=== PATIENT | female | born 1990 | race Caucasian/White ===

== ENCOUNTER 2017-10-22 05:38 | Inpatient (IN) | payer OTHER, MEDICAID ==
--- NOTE | 2017-10-21 15:33 | HP ---
DATE OF ADMISSION: 10/22/2017 ADMISSION DIAGNOSES: Term , history of previous section, for repeat section. HISTORY OF PRESENT ILLNESS: The patient is a 26-year-old 2, para 1-0-0-1, white female who is admitted for elective repeat section. She has an BENEDICT of 10/29/2017 as is determined by a certain last menstrual period. She is admitted for elective repeat section. The procedure, risks, benefits, and alternatives of care including attempt at all discussed with the patient. She appears to understand and wishes to proceed. Consent is signed. OBSTETRICAL/GYNECOLOGICAL HISTORY: 2, para 1-0-0-1. The patient had a certain last menstrual period, and BENEDICT is based on that. BENEDICT is 10/29/2017, placing her at 39-0/7 weeks' gestational age upon admission for elective repeat section. The patient has had a relatively unremarkable course. Her cycles usually come q. 28 days. Menarche at age 13. Positive hCG on 03/20/2017. Last menstrual period was normal. Not using any control at the time of conception. Her group B strep screen is negative. She has a history of drug use prior to this . She plans on . She has somewhat of an anxiety disorder. COURSE: The patient was initially seen early in the at 8 weeks 1 day. Her care was regular and constant. She had a weight gain from 153 pounds up to 182 pounds for a 29-pound weight gain. Fundal height growth was appropriate, and vital signs were stable throughout the course. Laboratory testing in showed blood to be O positive with a negative antibody screen. Platelets were 408,000 at first visit. She is rubella immune. RPR is nonreactive. Varicella shows immunity. Her urine culture was relatively unremarkable, and probable contaminants were noted. HIV and hepatitis B surface antigen assays were both negative. Chlamydia and gonorrhea were both negative. TSH on 03/21/2017 was 1.870 milliunits/L. Her group B strep screen was negative. Her second trimester labs showed hemoglobin of 11.8 g/dL and platelets of 311,000. Her 1-hour GTT was normal at 126. PAST MEDICAL HISTORY: Penicillin allergy. PAST SURGICAL HISTORY: 1. T and A at age 17. 2. Multiple jaw surgeries at age 17. 3. Primary section that was done on 07/08/2010 with resultant 8 pounds 0 ounce female . The reason for was failure to progress. ALLERGIES: Penicillin which causes hives. The patient reports no problems with cephalosporins. CURRENT MEDICATIONS: 1. Inhaler consisting of Breo Ellipta 100/25 mcg per inhalation use p.r.n. per day. 2. ProAir HFA inhaler 2 puffs every 4 hours p.r.n. 3. Cyclobenzaprine HCL 10 mg per day up to 3 times a day. 4. Escitalopram oxalate 20 mg oral tablets daily. 5. Flintstones plus iron oral tablet chewables. FAMILY HISTORY: Positive for mother's side with cancer. No anesthesia, bleeding, or blood clotting problems noted in the family. SOCIAL HISTORY: The patient is single and lives in [place]. She does not use any significant amounts of alcohol or drugs, but has smoked during the course of 3 to 4 cigarettes per day. REVIEW OF SYSTEMS: GENERAL: The patient reports good activity and no concerns. SKIN: Negative. CARDIOVASCULAR: No chest pain or exercise intolerance. RESPIRATORY: No shortness of breath or infectious symptoms. BREASTS: Changes associated with . The patient plans to breast feed. GASTROINTESTINAL: Negative. GENITOURINARY: Changes associated with with increased fundal height. MUSCULOSKELETAL: Negative other than some mild edema on occasion. NEUROLOGICAL: Negative. PHYSICAL EXAMINATION: GENERAL: The patient is a well-developed, well-nourished, pleasant female of stated age, in no acute distress. She appears to be alert, oriented x3, and a reasonable historian. VITAL SIGNS: Blood pressure was 124/62 on last evaluation on 10/16/2017 in the clinic. Weight was 182 with pregravid weight of 153. heart rate was 130. At the time of 1st visit, her height was 5 feet 2 inches, and her body mass index was 28.2. SKIN: Warm and dry without lesions. HEENT: Within normal limits. NECK: Within normal limits. BACK: Within normal limits. LUNGS: Clear with good breath sounds in all lung irizarry. CARDIOVASCULAR: Regular rate and rhythm without murmurs. BREASTS: Not done, having been done at first visit and found to be normal. ABDOMEN: Protuberant with with fundal height of 38.5 cm and baby in vertex presentation by Waqas maneuvers. EXTREMITIES: Grossly, within normal limits. NEUROLOGICAL: Grossly, within normal limits. ASSESSMENT: 1. A 39-0/7 weeks' intrauterine upon admission for elective repeat section. The procedure, risks, benefits, and alternatives of care including attempt at all discussed with the patient. She appears to understand and wishes to proceed. Consent is signed. 2. Risk factors for surgery include history of previous section and history of smoking in . PLAN: 1. Repeat lower uterine segment transverse section through Pfannenstiel skin incision under spinal block. Procedure, risks, and benefits were discussed with the patient. Consent is signed. 2. DVT prophylaxis with SCDs. 3. Infection prophylaxis with Ancef 2 g IV preop. 4. Routine preoperative laboratory testing consisting of CBC, urinalysis, type and screen. 5. Antibiotic prophylaxis with Ancef-we will give test dose prior to full dose. MMELISABETH /[id number]
[~2017-10-22 05:38] MED LIST: Citric Acid/Sodium Citrate Solution 30 ML Cup PO ONE; Lactated Ringers 1,000 ML IV SCH; Metoclopramide 10 MG/2 ML SDV IVPUSH ONE; Sodium Chloride 0.9% 10 ML Syringe FLUSH PRN
[2017-10-22] MEDS ORDERED: Morphine PF 10 MG/10 ML SDV ONE (07:00)
[2017-10-22] MEDS ORDERED: Oxytocin 10 Units/1 ML SDV ONE (07:01)
[2017-10-22] MEDS ORDERED: Bupivacaine 0.75%/D5W 2 ML Amp ONE (07:01)
[2017-10-22] MEDS ORDERED: Ondansetron 4 MG/2 ML SDV ONE (07:05)
--- NOTE | 2017-10-22 07:24 | PCM.PREANE ---
Preanesthetic Assessment - Procedure Proposed Procedure: Section - Anesthesia/Transfusion/Family Hx Anesthesia History: Prior Anesthesia Without Reaction Family History of Anesthesia Reaction: No Transfusion History: No Prior Transfusion(s) Intubation History: Unknown - Review of Systems General: No Symptoms Pulmonary: No Symptoms Cardiovascular: No Symptoms Gastrointestinal: No Symptoms Neurological: No Symptoms Other: Reports: None - Physical Assessment NPO Status Date: 10/21/17 NPO Status Time: 23:30 Pulse: 79 O2 Sat by Pulse Oximetry: 97 Respiratory Rate: 16 Blood Pressure: 114/68 Temperature: 36.6 C Vital Signs: Last Vital Signs Temp 36.6 C 10/22/17 05:50 Pulse 79 10/22/17 05:50 Resp 16 10/22/17 05:50 BP 114/68 10/22/17 05:50 Pulse Ox 97 10/22/17 05:50 Height: 1.57 m Weight: 83.189 kg ASA Class: 2 Mental Status: Alert & Oriented x3 Airway Class: Mallampati = 1 Dentition: Reports: Normal Dentition Thyro-Mental Finger Breadths: 3 Mouth Opening Finger Breadths: 5 Lungs: Clear to Auscultation, Normal Respiratory Effort Cardiovascular: Regular Rate, Regular Rhythm - Lab Values: Laboratory Last Values WBC 12.12 K/mm3 (3.98-10.04) H 10/21/17 08:22 RBC 3.94 M/mm3 (3.98-5.22) L 10/21/17 08:22 Hgb 12.4 gm/L (11.2-15.7) 10/21/17 08:22 Hct 36.2 % (34.1-44.9) 10/21/17 08:22 MCV 91.9 fl (79.4-94.8) 10/21/17 08:22 MCH 31.5 pg (25.6-32.2) 10/21/17 08:22 MCHC 34.3 g/dl (32.2-35.5) 10/21/17 08:22 RDW Std Deviation 43.0 fL (36.4-46.3) 10/21/17 08:22 Plt Count 317 K/mm3 (182-369) 10/21/17 08:22 MPV 9.1 fl (9.4-12.3) L 10/21/17 08:22 Neut % (Auto) 60.8 % (34.0-71.1) 10/21/17 08:22 Lymph % (Auto) 24.2 % (19.3-51.7) 10/21/17 08:22 Warren % (Auto) 8.8 % (4.7-12.5) 10/21/17 08:22 Eos % (Auto) 2.3 (0.7-5.8) 10/21/17 08:22 Baso % (Auto) 0.3 % (0.1-1.2) 10/21/17 08:22 Neut # (Auto) 7.36 K/mm3 (1.56-6.13) H 10/21/17 08:22 Lymph # (Auto) 2.93 K/mm3 (1.18-3.74) 10/21/17 08:22 Warren # (Auto) 1.07 K/mm3 (0.24-0.36) H 10/21/17 08:22 Eos # (Auto) 0.28 K/mm3 (0.04-0.36) 10/21/17 08:22 Baso # (Auto) 0.04 K/mm3 (0.01-0.08) 10/21/17 08:22 Manual Slide Review Abnormal smear 10/21/17 08:22 Urine Color Yellow (Yellow) 10/22/17 06:00 Urine Appearance Clear (Clear) 10/22/17 06:00 Urine pH 6.5 (5.0-8.0) 10/22/17 06:00 Ur Specific Dupont 1.015 (1.005-1.030) 10/22/17 06:00 Urine Protein Negative (Negative) 10/22/17 06:00 Urine Glucose (UA) Negative (Negative) 10/22/17 06:00 Urine Ketones Negative (Negative) 10/22/17 06:00 Urine Occult Blood Negative (Negative) 10/22/17 06:00 Urine Nitrite Negative (Negative) 10/22/17 06:00 Urine Bilirubin Negative (Negative) 10/22/17 06:00 Urine Urobilinogen 0.2 (0.2-1.0) 10/22/17 06:00 Ur Leukocyte Esterase Negative (Negative) 10/22/17 06:00 Urine RBC Not seen /hpf (0-5) 10/22/17 06:00 Urine WBC 0-5 /hpf (0-5) 10/22/17 06:00 Ur Epithelial Cells 5-10 /hpf (0-5) H 10/22/17 06:00 Urine Bacteria Few /hpf (FEW) 10/22/17 06:00 Urine Mucus Few /hpf (FEW) 10/22/17 06:00 Urine Opiates Screen Negative (NEGATIVE) 10/22/17 06:00 Ur Buprenorphine Scrn Negative (NEGATIVE) 10/22/17 06:00 Ur Oxycodone Screen Negative (NEGATIVE) 10/22/17 06:00 Urine Methadone Screen Negative (NEGATIVE) 10/22/17 06:00 Ur Propoxyphene Screen Negative (NEGATIVE) 10/22/17 06:00 Ur Barbiturates Screen Negative (NEGATIVE) 10/22/17 06:00 Ur Tricyclics Screen Negative (NEGATIVE) 10/22/17 06:00 Ur Phencyclidine Scrn Negative (NEGATIVE) 10/22/17 06:00 Ur Amphetamine Screen Negative (NEGATIVE) 10/22/17 06:00 U Methamphetamines Scrn Negative (NEGATIVE) 10/22/17 06:00 U Benzodiazepines Scrn Negative (NEGATIVE) 10/22/17 06:00 U Cocaine Metab Screen Negative (NEGATIVE) 10/22/17 06:00 U Marijuana (THC) Screen Negative (NEGATIVE) 10/22/17 06:00 Blood Type O POSITIVE 10/21/17 08:22 Gel Antibody Screen Negative 10/21/17 08:22 - Allergies Allergies/Adverse Reactions: Allergies Allergy/AdvReac Type Severity Reaction Status Date / Time Penicillins Allergy Hives Verified 10/21/17 23:14 - Blood Blood Available: No - Anesthesia Plan Pre-Op Medication Ordered: Other (standard OB preop meds ) - Acknowledgements Anesthesia Type Planned: Spinal Pt an Appropriate Candidate for the Planned Anesthesia: Yes Alternatives and Risks of Anesthesia Discussed w Pt/Guardian: Yes Pt/Guardian Understands and Agrees with Anesthesia Plan: Yes PreAnesthesia Questionnaire Respiratory History: Reports: Bronchitis, Recurrent Genitourinary History: Reports: UTI, Recurrent 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: Psychiatric History: Reports: Anxiety - Past Surgical History HEENT Surgical History: Reports: Adenoidectomy, Tonsillectomy GI Surgical History: Reports: Cholecystectomy Female Surgical History: Reports: Section - SUBSTANCE USE Smoking Status *Q: Current Some Day Smoker Tobacco Use Within Last Twelve Months: Cigarettes Recreational Drug Use History: Yes Recreational Drug Type: Reports: Methamphetamine - HOME MEDS Home Medications: Home Meds Albuterol Sulfate [Proair Hfa] 8.5 gm IH Q4HR PRN 10/21/17 [History] Cyclobenzaprine HCl 10 mg PO TID PRN 10/21/17 [History] Escitalopram Oxalate 20 mg PO DAILY 10/21/17 [History] Fluticasone/Vilanterol [Breo Ellipta 100-25 MCG Inhalation Kit] 1 each IH DAILY 10/21/17 [History] Pedi Mv No.79/Ferrous Fumarate [Flintstones with Iron Tab Chew] 18 mg PO DAILY 10/21/17 [History] - CURRENT (IN HOUSE) MEDS Current Meds: Current Medications Cefazolin Sodium/Dextrose 2 gm (/ Premix) 50 mls @ 100 mls/hr IV ONETIME ONE Stop: 10/22/17 08:29 Lactated Ringer's (Ringers, Lactated) 1,000 mls @ 125 mls/hr IV ASDIRECTED VIVIAN Last Admin: 10/22/17 06:19 Dose: 999 mls/hr Oxytocin 20 unit/ Lactated (Ringer's) 1,002 mls @ 500 mls/hr IV ASDIRECTED VIVIAN Sodium Chloride (Saline Flush) 10 ml FLUSH ASDIRECTED PRN PRN Reason: Keep Vein Open Discontinued Medications Bupivacaine HCl (Marcaine 0.5%) Confirm Administered Dose 30 ml .ROUTE .STK-MED ONE Stop: 10/22/17 07:00 Bupivacaine HCl/Dextrose (Marcaine 0.75% Spinal) Confirm Administered Dose 2 ml .ROUTE .STK-MED ONE Stop: 10/22/17 07:02 Citric Acid/Sodium Citrate (Bicitra Solution) 30 ml PO ONETIME ONE Stop: 10/22/17 05:01 Last Admin: 10/22/17 07:17 Dose: 30 ml Metoclopramide HCl (Reglan) 10 mg IVPUSH ONETIME ONE Stop: 10/22/17 05:01 Last Admin: 10/22/17 07:15 Dose: 10 mg Morphine Sulfate (Duramorph Pf) Confirm Administered Dose 10 mg .ROUTE .STK-MED ONE Stop: 10/22/17 07:01 Ondansetron HCl (Zofran) Confirm Administered Dose 4 mg .ROUTE .STK-MED ONE Stop: 10/22/17 07:06 Oxytocin (Pitocin) Confirm Administered Dose 20 unit .ROUTE .STK-MED ONE Stop: 10/22/17 07:02
[2017-10-22] MEDS ORDERED: ceFAZolin 2 GM in Premix Bag 1 BAG IV ONE (08:00)
[2017-10-22] MEDS: Bupivacaine 0.5% 30 ML SDV ONE ×2 (08:01→09:27)
[2017-10-22] MEDS ORDERED: Dexamethasone 4 MG/ML SDV ONE (08:19)
[2017-10-22] MEDS ORDERED: diphenhydrAMINE 50 MG/ML SDV ONE (08:20)
[2017-10-22] MEDS ORDERED: Pneumococcal Polyvalent-23 Vaccine 0.5 ML SDV IM ONE (08:30)
[2017-10-22] MEDS ORDERED: Lactated Ringers 1,000 ML ONE ×2 (08:36)
--- NOTE | 2017-10-22 08:47 | PCM.OPNOTE ---
- General Post-Op/Procedure Note Date of Surgery/Procedure: 10/22/17 Operative Procedure(s): Repeat lower uterine segment transverse section through Pfannenstiel skin incision Findings: Uterus tubes and ovaries consistent with term . Baby in vertex presentation. Amniotic fluid clear. Apgars 9 and 9. Weight 8 lbs. 4 oz. Male infant born at 0806 hrs. on 10/22/2017. Pre Op Diagnosis: 39-0/7 week intrauterine , history of previous section desire for repeat section Post-Op Diagnosis: Same with delivery of viable 8 lbs. 4 oz. male infant with Apgars of 9 and 9 at 0806 hrs. on 10/22/2017. Anesthesia Technique: Spinal Other Anesthesia Type: Local with Marcaine 0.5%20 mL Primary Surgeon: Landon Chadwick Secondary Surgeon: Eli Knight Anesthesia Provider: Kelly Madrigal Reason Mixing Tumbler Operator Was Necessary: Retraction, assistance, patient safety, quality of care. Role of Mixing Tumbler Operator: Retraction, assistance. Pathology: Segment of cord secured per pediatric request. Fluid Replacement, Intraop: 1,000 Output, Urine Amount: 300 EBL in mLs: 500 Drain/Tube Comments:: Indwelling bladder catheter Complications: None Condition: Good Free Text/Narrative:: Surgery duration: 29 minutes Procedure: The patient is appropriately consented. Patient was transferred to the room and placed in a sitting position. Spinal anesthesia was administered. After confirmation of adequate anesthesia patient was placed in a supine position with a wedge under her right side to facilitate left lateral positioning. The patient was prepped and draped in usual fashion after Shepard catheter was already placed . The anesthetic was checked and found to be adequate. 20 mL of Marcaine 0.5% was injected locally in the Pfannenstiel incision site. The Pfannenstiel skin incision was then made and carried down through skin, subcutaneous and fascial layers. The fascia was then undermined superiorly and inferiorly to allow for adequate operating room. The recti muscles midline and preperitoneal fat was bluntly dissected. Peritoneal cavity was entered longitudinally. The vesicouterine peritoneum was then incised transversely and bladder flap was developed. Myometrium was incised transversely to the level of the amniotic sac. This incision was extended bilaterally in a blunt fashion. The amniotic sac was then ruptured resulting in clear amniotic fluid. A hand is placed in the low uterine segment and the baby's head was brought forth through the incision. The baby was completely delivered using fundal pressure in a routine fashion. The nose and mouth were bulb suctioned. Baby's cord was clamped x2 cut and baby was handed off to attending occupational psychologist Dr Carranza. Placenta was expressed after cord blood was obtained. Uterus was then exteriorized to allow for easier closure. The cervix was assessed and found to be dilated adequately to allow egress of blood. The uterus was closed in 2 layers. The first layer a running locked suture of 0 Monocryl, the second layer a running locked vertical mattress suture of 0 Monocryl. [id number] suture was placed at mid incision to control 1 bleeder. Hemostasis confirmed at this time. Sponge instrument needle counts are correct. The uterus was returned to the abdominal cavity and lateral gutters were cleared of blood. Once again sponge needle counts are correct. The anterior abdominal wall was closed with a #1 PDS suture from angle to angle. The subcutaneous area was found to be free of any bleeders. interrupted sutures of 3-0 Monocryl were used to reapproximate the subcutaneous layer.Skin was closed with a running subcuticular stitch of 3-0 Monocryl in a vertical mattress suture fashion using a Sujit needle. Prineo mesh/glue was then applied to further approximate the incision. It should be noted that patient received 2 g of Ancef preoperatively for infection prophylaxis and had Pitocin infused after delivery of the placenta to facilitate uterine contraction. She also had sequential compression stockings in place for DVT prophylaxis. Patient was discharged from the operating room in satisfactory condition.
[2017-10-22] MEDS ORDERED: Ondansetron 4 MG/2 ML SDV IVPUSH PRN (08:54)
[2017-10-22] MEDS ORDERED: diphenhydrAMINE 50 MG/ML SDV IVPUSH PRN ×2 (08:54→11:13)
--- NOTE | 2017-10-22 08:59 | PCM.POSTAN ---
POST ANESTHESIA ASSESSMENT - MENTAL STATUS Mental Status: Other (drowsy) - VITAL SIGNS Pulse Rate: 87 SaO2: 96 Resp Rate: 15 Blood Pressure: 130/71 Temperature: 35.9 C - RESPIRATORY Respiratory Status: Respiratory Rate WNL, Airway Patent, O2 Saturation Stable - CARDIOVASCULAR CV Status: Pulse Rate WNL, Blood Pressure Stable - GASTROINTESTINAL GI Status: No Symptoms - PAIN Pain Score: 0 - POST OP HYDRATION Hydration Status: Adequate & Stable
[2017-10-22] MEDS ORDERED: Ketorolac 30 MG/ML SDV IVPUSH SCH (09:00)
[2017-10-22] MEDS ORDERED: ePHEDrine 50 MG/ML SDV IVPUSH PRN (11:13)
[2017-10-22] MEDS ORDERED: Docusate Sodium 100 MG Cap PO PRN (11:13)
[2017-10-22] MEDS ORDERED: Lanolin 100% Cream 7 GM Tube TOP PRN (11:13)
[2017-10-22] MEDS ORDERED: Dextrose 5%-Lactated Ringers 1,000 ML IV SCH (11:13)
[2017-10-22] MEDS ORDERED: Naloxone 0.4 MG/ML SDV IVPUSH PRN (11:13)
[2017-10-22] MEDS ORDERED: Ondansetron 4 MG Tab.DIS PO PRN (11:13)
[2017-10-22] MEDS: Prenatal Multivitamin with Calcium/Folic Acid/Iron Tab PO SCH (11:56)
[2017-10-22] MEDS: Simethicone 80 MG Tab.Chew PO SCH ×4 (11:56→22:22)
[2017-10-22] MEDS: Ibuprofen 800 MG Tab PO SCH ×2 (14:51→22:21)
[2017-10-22] MEDS: Acetaminophen/oxyCODONE 325-5 MG Tab PO PRN (20:22)
[2017-10-23] MEDS: Acetaminophen/oxyCODONE 325-5 MG Tab PO PRN ×5 (01:44→20:15)
--- NOTE | 2017-10-23 05:39 | PCM.SN ---
- Free Text/Narrative Note: note: Patient is doing well in the period. Minimal lochia, voiding well, ambulated without problems. Nursing without concerns. Patient is afebrile, vital signs are stable Abdomen is flat, soft, uterus is below the umbilicus and is firm and nontender. Incision dry and intact. Positive bowel sounds noted. Legs are nontender. CBC pending Assessment: / day 1- recovery going well. Plan: Routine care. Patient be discharged home within the next 24- 48 hours.
[2017-10-23] MEDS: Ibuprofen 800 MG Tab PO SCH ×3 (06:41→21:10)
--- NOTE | 2017-10-23 09:34 | PCM48HPAN ---
Post Anesthesia Note - EVALUATION WITHIN 48HRS OF ANESTHETIC Vital Signs in Normal Range: Yes Patient Participated in Evaluation: Yes Respiratory Function Stable: Yes Airway Patent: Yes Cardiovascular Function Stable: Yes Hydration Status Stable: Yes Pain Control Satisfactory: Yes Nausea and Vomiting Control Satisfactory: Yes Mental Status Recovered: Yes Pulse Rate: 71 Resp Rate: 17 Temperature: 36.4 C Blood Pressure: 111/68
[2017-10-23] MEDS ORDERED: Pneumococcal Polyvalent-23 Vaccine 0.5 ML SDV IM ONE (10:27)
[2017-10-23] MEDS: Simethicone 80 MG Tab.Chew PO SCH ×3 (10:48→21:11)
[2017-10-23] MEDS: Prenatal Multivitamin with Calcium/Folic Acid/Iron Tab PO SCH (10:48)
[2017-10-24] MEDS: Acetaminophen/oxyCODONE 325-5 MG Tab PO PRN ×3 (00:21→09:03)
[2017-10-24] MEDS: Ibuprofen 800 MG Tab PO SCH (02:12)
[2017-10-24] MEDS ORDERED: Ibuprofen 800 MG Tab PO SCH (05:00)
--- NOTE | 2017-10-24 06:30 | PCM.DCSUM1 ---
Discharge Summary - Hospital Course Free Text/Narrative:: Cinda is a 26-year-old 2 now para 2001 white female was admitted on 10/22/2017 for elective repeat section. The procedure was performed without incident. Patient is done well postoperatively. She delivered a viable, 7 lbs. 13 oz. male with Apgars of 9 and 9 at 0806 hrs. on 10/22/2017. Done well. She is breast-feeding without concerns. Incision appears to be healing well. She has minimal lochia, is voiding well and has pain under good control. Vital signs have been stable and follow-up CBC was within normal limits for the post operative.. She wishes to be discharged today. Diagnosis: Stroke: No - Discharge Data Discharge Date: 10/24/17 Discharge Disposition: Home, Self-Care 01 Condition: Good - Patient Summary/Data Operative Procedure(s) Performed: Repeat lower uterine segment transverse section through Pfannenstiel skin incision - Patient Instructions Diet: Regular Diet as Tolerated (Nursing diet with increase calories and calcium is recommended) Activity: As Tolerated (No lifting greater than 15 pounds for the first week. No driving a car 1 week. Patient may shower) Driving: Do Not Drive Showering/Bathing: May Shower Wound/Incision Care: Keep Operative Site/Wound Site Clean and Dry Notify Provider of: Fever, Increased Pain, Swelling and Redness, Drainage, Nausea and/or Vomiting - Discharge Plan Home Medications: Home Meds Albuterol Sulfate [Proair Hfa] 8.5 gm IH Q4HR PRN 10/21/17 [History] Escitalopram Oxalate 20 mg PO DAILY 10/21/17 [History] Fluticasone/Vilanterol [Breo Ellipta 100-25 MCG Inhalation Kit] 1 each IH DAILY 10/21/17 [History] Pedi Mv No.79/Ferrous Fumarate [Flintstones with Iron Tab Chew] 18 mg PO DAILY 10/21/17 [History] Acetaminophen/oxyCODONE [Percocet 325-5 MG] 2 tab PO Q4H PRN tablet 10/24/17 [ Rx] Ibuprofen [Motrin] 600 mg PO Q4H PRN #30 tablet 10/24/17 [Rx] Patient Handouts: Steps to Quit Smoking Referrals: Landon Chadwick MD [Physician] - (Return to [facility] weeks.) - Discharge Summary/Plan Comment DC Time >30 min.: No Discharge Summary/Plan Comment: Discharge instructions: 1. Discharge home 2. Diet, activity and follow-up discussed with patient. Recommend nursing diet with increased calories and calcium. 3. Precautions given concern increased pain, bleeding, temperature, signs/ symptoms of DVT/PE. 4. Medications per home medication was printed, discussed with and given to the patient. 5. Return to clinic-Dr. Chadwick-[facility] in 2 weeks. Diagnosis: Term -delivered by repeat section Condition: Good - Patient Data Vitals - Most Recent: Last Vital Signs Temp 36.7 C 10/24/17 03:00 Pulse 73 10/24/17 03:59 Resp 17 10/24/17 03:00 BP 120/73 10/24/17 03:59 Pulse Ox 97 10/24/17 03:59 Weight - Most Recent: 83.189 kg I&O - Last 24 hours: Intake & Output 10/23/17 10/23/17 10/24/17 14:59 22:59 06:59 Output Total 500 Balance -500 Lab Results - Last 24 hrs: Laboratory Results - last 24 hr 10/23/17 Range/Units 06:20 WBC 14.92 H (3.98-10.04) K/mm3 RBC 3.72 L (3.98-5.22) M/mm3 Hgb 11.5 (11.2-15.7) gm/L Hct 33.9 L (34.1-44.9) % MCV 91.1 (79.4-94.8) fl MCH 30.9 (25.6-32.2) pg MCHC 33.9 (32.2-35.5) g/dl RDW Std Deviation 41.8 (36.4-46.3) fL Plt Count 296 (182-369) K/mm3 MPV 9.1 L (9.4-12.3) fl Neut % (Auto) 63.5 (34.0-71.1) % Lymph % (Auto) 20.6 (19.3-51.7) % [place] % (Auto) 10.6 (4.7-12.5) % Eos % (Auto) 1.9 (0.7-5.8) Baso % (Auto) 0.3 (0.1-1.2) % Neut # (Auto) 9.48 H (1.56-6.13) K/mm3 Lymph # (Auto) 3.07 (1.18-3.74) K/mm3 [place] # (Auto) 1.58 H (0.24-0.36) K/mm3 Eos # (Auto) 0.29 (0.04-0.36) K/mm3 Baso # (Auto) 0.04 (0.01-0.08) K/mm3 Manual Slide Review Abnormal smear Med Orders - Current: Current Medications Diphenhydramine HCl (Benadryl) 25 mg IVPUSH Q6H PRN PRN Reason: Itching or Nausea Docusate Sodium (Colace) 100 mg PO Q12H PRN PRN Reason: Constipation Last Admin: 10/23/17 21:26 Dose: 100 mg Emollient Ointment (Lansinoh Hpa) 0 gm TOP ASDIRECTED PRN PRN Reason: Sore Nipples Ephedrine Sulfate (Ephedrine Sulfate) 5 mg IVPUSH SEECOMMENT PRN PRN Reason: Other Ibuprofen (Motrin) 800 mg PO Q8H [facility] Last Admin: 10/24/17 05:18 Dose: 800 mg Naloxone HCl (Narcan) 0.1 mg IVPUSH SEECOMMENT PRN PRN Reason: Respiratory Depression Ondansetron HCl (Zofran Odt) 4 mg PO Q4H PRN PRN Reason: Nausea/Vomiting Oxycodone/Acetaminophen (Percocet 325-5 Mg) 2 tab PO Q4H PRN PRN Reason: Pain (moderate 4-6) Last Admin: 10/24/17 04:00 Dose: 2 tab Prenat Multivit/[place]/Iron/Folic Ac ( Plus Iron) 1 each PO DAILY [facility] Last Admin: 10/23/17 10:48 Dose: 1 each Simethicone (Simethicone) 80 mg PO PCBED [facility] Last Admin: 10/23/17 21:11 Dose: 80 mg Discontinued Medications Bupivacaine HCl (Marcaine 0.5%) Confirm Administered Dose 30 ml .ROUTE .STK-MED ONE Stop: 10/22/17 07:00 Last Admin: 10/22/17 08:01 Dose: 20 ml Bupivacaine HCl/Dextrose (Marcaine 0.75% Spinal) Confirm Administered Dose 2 ml .ROUTE .[facility] ONE Stop: 10/22/17 07:02 Citric Acid/Sodium Citrate (Bicitra Solution) 30 ml PO ONETIME ONE Stop: 10/22/17 05:01 Last Admin: 10/22/17 07:17 Dose: 30 ml Dexamethasone (Dexamethasone) Confirm Administered Dose 4 mg .ROUTE .[facility] ONE Stop: 10/22/17 08:20 Diphenhydramine HCl (Benadryl) Confirm Administered Dose 50 mg .ROUTE .[facility] ONE Stop: 10/22/17 08:21 Diphenhydramine HCl (Benadryl) 25 mg IVPUSH Q6H PRN PRN Reason: pruritis Cefazolin Sodium/Dextrose 2 gm (/ Premix) 50 mls @ 100 mls/hr IV ONETIME ONE Stop: 10/22/17 08:29 Last Admin: 10/22/17 11:57 Dose: Not Given Lactated Ringer's (Ringers, Lactated) 1,000 mls @ 125 mls/hr IV ASDIRECTED [facility] Last Admin: 10/22/17 06:19 Dose: 999 mls/hr Oxytocin 20 unit/ Lactated (Ringer's) 1,002 mls @ 500 mls/hr IV ASDIRECTED [facility] Lactated Ringer's (Ringers, Lactated) Confirm Administered Dose 1,000 mls @ as directed .ROUTE .[facility] ONE Stop: 10/22/17 08:37 Lactated Ringer's (Ringers, Lactated) Confirm Administered Dose 1,000 mls @ as directed .ROUTE .[facility] ONE Stop: 10/22/17 08:37 Dextrose/Lactated Ringer's (Dextrose 5%-Lactated Ringers) 1,000 mls @ 125 mls/ hr IV ASDIRECTED [facility] Stop: 10/22/17 19:12 Last Admin: 10/22/17 14:51 Dose: 125 mls/hr Ibuprofen (Motrin) 800 mg PO Q8H [facility] Last Admin: 10/24/17 02:12 Dose: Not Given Ketorolac Tromethamine (Toradol) 30 mg IVPUSH ONETIME [facility] Last Admin: 10/22/17 09:01 Dose: 30 mg Metoclopramide HCl (Reglan) 10 mg IVPUSH ONETIME ONE Stop: 10/22/17 05:01 Last Admin: 10/22/17 07:15 Dose: 10 mg Morphine Sulfate (Duramorph Pf) Confirm Administered Dose 10 mg .ROUTE .STK-MED ONE Stop: 10/22/17 07:01 Ondansetron HCl (Zofran) Confirm Administered Dose 4 mg .ROUTE .STK-MED ONE Stop: 10/22/17 07:06 Ondansetron HCl (Zofran) 4 mg IVPUSH ONETIME PRN PRN Reason: Nausea/Vomiting Oxytocin (Pitocin) Confirm Administered Dose 20 unit .ROUTE .STK-MED ONE Stop: 10/22/17 07:02 Pneumococcal Polyvalent Vaccine (Pneumovax 23) 0.5 ml IM .ONCE ONE Stop: 10/22/17 08:31 Pneumococcal Polyvalent Vaccine (Pneumovax 23) 0.5 ml IM .ONCE ONE Stop: 10/23/17 10:28 Last Admin: 10/23/17 21:12 Dose: 0.5 ml Sodium Chloride (Saline Flush) 10 ml FLUSH ASDIRECTED PRN PRN Reason: Keep Vein Open
[2017-10-24] MEDS: Simethicone 80 MG Tab.Chew PO SCH (09:01)
[2017-10-24] MEDS: Prenatal Multivitamin with Calcium/Folic Acid/Iron Tab PO SCH (09:01)
== END 2017-10-24 10:30 | disposition home or self-care (01) | DRG 766 ==
LOC: JD.OB 05:38
PROVIDERS: ADMIT Obstetrics & Gynecology; ATTEND Obstetrics & Gynecology
PROC: 10D00Z1 Extraction of Products of Conception, Low, Open Approach (ICD-10-PCS; principal; 2017-10-22)
PROC: 6A550ZT Pheresis of Cord Blood Stem Cells, Single (ICD-10-PCS; principal; 2017-10-22)
DX: O34.211 Maternal care for low transverse scar from previous cesarean delivery (principal); Z37.0 Single live birth; N85.8 Other specified noninflammatory disorders of uterus; Z3A.39 39 weeks gestation of pregnancy; O99.334 Smoking (tobacco) complicating childbirth; F17.210 Nicotine dependence, cigarettes, uncomplicated; Z88.0 Allergy status to penicillin; Z79.899 Other long term (current) drug therapy; O99.344 Other mental disorders complicating childbirth; F41.9 Anxiety disorder, unspecified; Z87.440 Personal history of urinary (tract) infections; Z90.49 Acquired absence of other specified parts of digestive tract
CPT/HCPCS: 01961; 36415; 59025; 80306; 81001; 85025; 86592; 86850; 86900; 86901; 90732; 94762; A9270-GY; G0009; J1100; J1200; J1885; J2270; J2405; J2590; J2765; J3490; J7042; J7120

== ENCOUNTER 2021-09-08 18:38 | Emergency (ER) | payer BC, MEDICAID ==
[2021-09-08] MEDS ORDERED: Sodium Chloride 0.9% 10 ML Syringe FLUSH PRN (18:55)
[2021-09-08] MEDS ORDERED: Ketorolac 30 MG/ML SDV IVPUSH ONE (19:04)
[2021-09-08] MEDS ORDERED: Ketorolac 60 MG/2 ML SDV IM ONE (19:51)
[2021-09-08 20:22] LABS: ESTIMATED GFR > 60 mL/min (>60)
== END 2021-09-08 21:25 | disposition home or self-care (01) ==
LOC: JD.ED 18:38
DX: M94.0 Chondrocostal junction syndrome [Tietze] (principal); F17.210 Nicotine dependence, cigarettes, uncomplicated; Z88.0 Allergy status to penicillin; Z79.899 Other long term (current) drug therapy; Z90.49 Acquired absence of other specified parts of digestive tract
CPT/HCPCS: 36415; 71046; 80053; 85025; 85379; 86140; 93005; 96372; 99285; J1885; 93010; 99283

== ENCOUNTER 2021-11-10 10:38 | Emergency (ER) | payer BC ==
[2021-11-10] MEDS ORDERED: Sodium Chloride 0.9% 10 ML Syringe FLUSH PRN (11:04)
[2021-11-10] MEDS ORDERED: methylPREDNISolone Sodium Succinate 125 MG/2 ML SDV IVPUSH ONE (11:04)
[2021-11-10] MEDS ORDERED: diphenhydrAMINE 50 MG/ML SDV IVPUSH ONE (11:05)
[2021-11-10] MEDS ORDERED: Famotidine 20 MG/2 ML SDV IVPUSH ONE (11:05)
== END 2021-11-10 13:51 | disposition home or self-care (01) ==
LOC: JD.ED 10:38
DX: T78.40XA Allergy, unspecified, initial encounter (principal); F17.210 Nicotine dependence, cigarettes, uncomplicated; Z88.0 Allergy status to penicillin; Z79.899 Other long term (current) drug therapy; Z90.49 Acquired absence of other specified parts of digestive tract
CPT/HCPCS: 96374; 96375; 99283; J1200; J2930; J3490

== ENCOUNTER 2022-04-27 05:53 | Emergency (ER) | payer BC, MEDICAID ==
[2022-04-27] MEDS ORDERED: HYDROmorphone 0.5 MG/0.5 ML Syringe IVPUSH ONE (07:03)
[2022-04-27] MEDS ORDERED: Acetaminophen 325 MG Tab PO ONE (07:03)
[2022-04-27] MEDS ORDERED: Ondansetron 4 MG/2 ML SDV IVPUSH ONE (07:04)
[2022-04-27] MEDS ORDERED: Dextrose 5%-0.9% NaCl 1,000 ML IV SCH (07:15)
[2022-04-27 08:28] LABS: CORONAVIRUS COVID-19 NAA POSITIVE (NEGATIVE)
== END 2022-04-27 09:09 | disposition home or self-care (01) ==
LOC: JD.ED 05:53
DX: O98.511 Other viral diseases complicating pregnancy, first trimester (principal); U07.1 COVID-19; Z88.0 Allergy status to penicillin; Z3A.08 8 weeks gestation of pregnancy
CPT/HCPCS: 0241U; 36415; 80053; 83605; 83735; 85025; 86140; 96361; 96374; 96375; 99284; A9270; J1170; J2405; J7042

== ENCOUNTER 2022-11-22 02:39 | Inpatient (IN) | payer SELFPAY ==
[2022-11-22] MEDS ORDERED: Lactated Ringers 2,000 ML ONE (02:57)
[2022-11-22] MEDS: Lactated Ringers 1,000 ML IV SCH ×2 (03:00→03:37)
[2022-11-22] MEDS ORDERED: Sodium Chloride 0.9% 10 ML Syringe FLUSH PRN (03:16)
[2022-11-22] MEDS ORDERED: Citric Acid/Sodium Citrate Solution 30 ML Cup PO ONE (03:16)
[2022-11-22] MEDS ORDERED: Metoclopramide 10 MG/2 ML SDV IVPUSH ONE (03:16)
[2022-11-22] MEDS ORDERED: Oxytocin 10 Units/1 ML SDV ONE ×3 (03:33→04:39)
[2022-11-22] MEDS ORDERED: Morphine PF 10 MG/10 ML SDV ONE (03:33)
[2022-11-22] MEDS ORDERED: Ondansetron 4 MG/2 ML SDV ONE (03:33)
[2022-11-22] MEDS ORDERED: Ketorolac 30 MG/ML SDV ONE (03:33)
[2022-11-22] MEDS ORDERED: fentaNYL 100 MCG/2 ML SDV ONE (03:33)
[2022-11-22] MEDS ORDERED: ceFAZolin 2 GM Vial ONE (03:36)
[2022-11-22 03:44] LABS: BASOPHILS ABSOLUTE AUTO 0.05 K/mm3 (0.01-0.08); BASOPHILS PERCENT AUTO 0.3 % (0.1-1.2); EOSINOPHILS ABSOLUTE AUTO 0.22 K/mm3 (0.04-0.36); EOSINOPHILS PERCENT AUTO 1.4 (0.7-5.8); HEMATOCRIT 33.3 % (34.1-44.9); HEMOGLOBIN 11.2 gm/dl (11.2-15.7); IMMATURE GRAN ABSOLUTE AUTO 0.25 K/mm3 (0.00-0.10); IMMATURE GRAN PERCENT AUTO 1.5 % (<=1.0); LYMPHOCYTES ABSOLUTE AUTO 3.17 K/mm3 (1.18-3.74); LYMPHOCYTES PERCENT AUTO 19.6 % (19.3-51.7); MEAN CORPUSCULAR HEMOGLOBIN 29.9 pg (25.6-32.2); MEAN CORPUSCULAR HGB CONC 33.6 g/dl (32.2-35.5); MEAN PLATELET VOLUME 8.9 fl (9.4-12.3); MONOCYTES ABSOLUTE AUTO 1.28 K/mm3 (0.24-0.36); MONOCYTES PERCENT AUTO 7.9 % (4.7-12.5); NEUTROPHILS ABSOLUTE AUTO 11.19 K/mm3 (1.56-6.13); NEUTROPHILS PERCENT AUTO 69.3 % (34.0-71.1); PLATELET COUNT,PLT 354 K/mm3 (182-369); RED BLOOD CELL COUNT 3.74 M/mm3 (3.98-5.22); WHITE BLOOD CELL COUNT,WBC 16.16 K/mm3 (3.98-10.04)
[2022-11-22] MEDS ORDERED: Lactated Ringers 1,000 ML ONE ×2 (04:15→04:40)
[2022-11-22] MEDS ORDERED: diphenhydrAMINE 50 MG/ML SDV IVPUSH PRN (05:24)
[2022-11-22] MEDS ORDERED: fentaNYL 100 MCG/2 ML SDV IVPUSH PRN (05:24)
[2022-11-22] MEDS ORDERED: Ondansetron 4 MG/2 ML SDV IVPUSH PRN ×2 (05:24→05:35)
[2022-11-22] MEDS ORDERED: Naloxone 0.4 MG/ML SDV IVPUSH PRN (05:25)
[2022-11-22] MEDS ORDERED: ePHEDrine 50 MG/ML SDV IVPUSH PRN (05:25)
[2022-11-22] MEDS ORDERED: Dextrose 5%-Lactated Ringers 1,000 ML IV SCH (05:30)
[2022-11-22] MEDS ORDERED: Oxytocin/Lactated Ringers 10 UNIT/1,000 ML BAG IV SCH (05:30)
[2022-11-22] MEDS: Acetaminophen/oxyCODONE 325-5 MG Tab PO PRN ×4 (06:54→22:00)
[2022-11-22] MEDS: diphenhydrAMINE 50 MG/ML SDV IVPUSH PRN ×2 (07:55→20:32)
[2022-11-22] MEDS ORDERED: Sodium Chloride 0.9% 10 ML Syringe FLUSH SCH (09:00)
[2022-11-22] MEDS: Ketorolac 30 MG/ML SDV IVPUSH SCH ×2 (11:53→18:01)
[2022-11-22] MEDS ORDERED: Albuterol/Ipratropium 3.0-0.5 MG/3 ML Neb Soln NEB ONE (21:22)
[2022-11-23] MEDS ORDERED: Ibuprofen 600 MG Tab PO SCH
[2022-11-23] MEDS: diphenhydrAMINE 50 MG/ML SDV IVPUSH PRN (01:17)
[2022-11-23] MEDS: Acetaminophen/oxyCODONE 325-5 MG Tab PO PRN ×4 (04:37→20:20)
[2022-11-23 06:20] LABS: BASOPHILS ABSOLUTE AUTO 0.03 K/mm3 (0.01-0.08); BASOPHILS PERCENT AUTO 0.3 % (0.1-1.2); EOSINOPHILS ABSOLUTE AUTO 0.21 K/mm3 (0.04-0.36); EOSINOPHILS PERCENT AUTO 1.8 (0.7-5.8); HEMATOCRIT 26.3 % (34.1-44.9); IMMATURE GRAN ABSOLUTE AUTO 0.12 K/mm3 (0.00-0.10); LYMPHOCYTES ABSOLUTE AUTO 2.58 K/mm3 (1.18-3.74); LYMPHOCYTES PERCENT AUTO 21.6 % (19.3-51.7); MEAN CORPUSCULAR HGB CONC 32.7 g/dl (32.2-35.5); MEAN CORPUSCULAR VOLUME 91.6 fl (79.4-94.8); MEAN PLATELET VOLUME 8.8 fl (9.4-12.3); MONOCYTES ABSOLUTE AUTO 1.32 K/mm3 (0.24-0.36); MONOCYTES PERCENT AUTO 11.1 % (4.7-12.5); NEUTROPHILS ABSOLUTE AUTO 7.67 K/mm3 (1.56-6.13); NEUTROPHILS PERCENT AUTO 64.2 % (34.0-71.1); PLATELET COUNT,PLT 312 K/mm3 (182-369); RED BLOOD CELL COUNT 2.87 M/mm3 (3.98-5.22); WHITE BLOOD CELL COUNT,WBC 11.93 K/mm3 (3.98-10.04)
[2022-11-23 06:27] LABS: HEMOGLOBIN 8.6 gm/dl (11.2-15.7)
[2022-11-23] MEDS ORDERED: Prenatal Multivitamin with Calcium/Folic Acid/Iron Tab PO SCH (09:00)
[2022-11-23] MEDS ORDERED: Albuterol/Ipratropium 3.0-0.5 MG/3 ML Neb Soln NEB PRN (20:32)
[2022-11-24] MEDS: Acetaminophen/oxyCODONE 325-5 MG Tab PO PRN ×2 (00:22→06:55)
== END 2022-11-24 11:00 | disposition home or self-care (01) | DRG 788 ==
LOC: JD.OBCHECK 02:39 → JD.OB 02:39 → JD.OBCHECK 03:15 → JD.OB 03:16
PROVIDERS: ADMIT Obstetrics & Gynecology; ATTEND Obstetrics & Gynecology
PROC: 10D00Z1 Extraction of Products of Conception, Low, Open Approach (ICD-10-PCS; principal; 2022-11-22)
DX: O34.211 Maternal care for low transverse scar from previous cesarean delivery (principal); O69.81X0 Labor and delivery complicated by cord around neck, without compression, not applicable or unspecified; Z37.0 Single live birth; Z3A.38 38 weeks gestation of pregnancy; Z88.0 Allergy status to penicillin; Z90.89 Acquired absence of other organs; Z90.49 Acquired absence of other specified parts of digestive tract
CPT/HCPCS: 01961; 36415; 59025; 85025; 86592; 86850; 86900; 86901; 94640; 94667; 94668; 94761; 94762; 99140; A9270-GY; J0690; J1200; J1885; J2274; J2405; J2590; J2765; J3010; J7120; J7620-GY

== ENCOUNTER 2023-01-12 16:54 | Emergency (ER) | payer SELFPAY | END 2023-01-12 19:22 | disposition left against medical advice (07) | LOC: JD.ED 16:54 | DX: T63.441A Toxic effect of venom of bees, accidental (unintentional), initial encounter (principal) ==

== ENCOUNTER 2023-03-03 19:20 | Emergency (ER) | payer MEDICAID ==
[2023-03-03] MEDS ORDERED: Sodium Chloride 0.9% 10 ML Syringe FLUSH PRN (20:10)
[2023-03-03 20:48] LABS: BASOPHILS ABSOLUTE AUTO 0.1 K/mm3 (0.0-0.2); BASOPHILS PERCENT AUTO 0.8 % (0.0-1.0); EOSINOPHILS ABSOLUTE AUTO 0.2 K/mm3 (0.0-0.4); EOSINOPHILS PERCENT AUTO 2.9 % (0.0-6.0); HEMATOCRIT 37.7 % (37.0-47.0); HEMOGLOBIN 12.8 gm/dl (12.0-16.0); IMMATURE GRAN ABSOLUTE AUTO 0.01 K/mm3 (0.00-0.05); IMMATURE GRAN PERCENT AUTO 0.1 % (0.0-0.4); LYMPHOCYTES ABSOLUTE AUTO 2.9 K/mm3 (1.0-4.8); LYMPHOCYTES PERCENT AUTO 39.5 % (24.0-44.0); MEAN CORPUSCULAR HEMOGLOBIN 29.1 pg (28.0-32.0); MEAN CORPUSCULAR VOLUME 85.7 fl (83.0-99.0); MEAN PLATELET VOLUME 8.2 fl (9.4-12.3); MONOCYTES ABSOLUTE AUTO 0.5 K/mm3 (0.0-0.8); MONOCYTES PERCENT AUTO 6.2 % (0.0-8.0); NEUTROPHILS ABSOLUTE AUTO 3.7 K/mm3 (1.8-7.7); NEUTROPHILS PERCENT AUTO 50.5 % (41.0-71.0); PLATELET COUNT,PLT 340 K/mm3 (150-400); WHITE BLOOD CELL COUNT,WBC 7.29 K/mm3 (3.9-11.3)
[2023-03-03 21:22] LABS: A/G RATIO 1.2 (1-2); ALBUMIN 3.6 g/dl (3.4-5.0); ANION GAP 11.8 (5-15); BILIRUBIN TOTAL 0.3 mg/dL (0.2-1.0); BUN/CREATININE RATIO 12.5 (14-18); CALCIUM 8.8 mg/dL (8.5-10.1); CREATININE 0.8 mg/dL (0.55-1.02); EST CRCL DRUG DOSING (CG) 80.59 mL/min; POTASSIUM,K 3.8 mEq/L (3.5-5.1); PROTEIN TOTAL,TP 6.6 g/dl (6.4-8.2)
== END 2023-03-03 22:40 | disposition home or self-care (01) ==
LOC: JD.ED 19:20
DX: N93.9 Abnormal uterine and vaginal bleeding, unspecified (principal); Z88.0 Allergy status to penicillin; Z79.899 Other long term (current) drug therapy; Z90.49 Acquired absence of other specified parts of digestive tract
CPT/HCPCS: 36415; 80053; 84702; 85025; 86900; 86901; 99284; A9270; J3490; 99283

== ENCOUNTER 2023-05-10 16:19 | Emergency (ER) | payer MEDICAID ==
[2023-05-10] MEDS: Metoclopramide 10 MG/2 ML SDV IM ONE (17:02)
[2023-05-10] MEDS: Ketorolac 60 MG/2 ML SDV IM ONE (17:02)
[2023-05-10] MEDS: diphenhydrAMINE 50 MG/ML SDV IM ONE (17:02)
== END 2023-05-10 18:28 | disposition home or self-care (01) ==
LOC: JD.ED 16:19
DX: G43.909 Migraine, unspecified, not intractable, without status migrainosus (principal); F17.210 Nicotine dependence, cigarettes, uncomplicated; Z88.0 Allergy status to penicillin
CPT/HCPCS: 96372; 99283; J1200; J1885; J2765; 99282

== ENCOUNTER 2023-12-19 21:19 | Emergency (ER) | payer MEDICAID ==
[2023-12-19] MEDS ORDERED: Sodium Chloride 0.9% 10 ML Syringe FLUSH PRN (21:29)
[2023-12-19 21:52] LABS: BASOPHILS ABSOLUTE AUTO 0.1 K/mm3 (0.0-0.2); BASOPHILS PERCENT AUTO 0.5 % (0.0-1.0); EOSINOPHILS ABSOLUTE AUTO 0.4 K/mm3 (0.0-0.4); EOSINOPHILS PERCENT AUTO 2.6 % (0.0-6.0); HEMATOCRIT 32.8 % (37.0-47.0); HEMOGLOBIN 11.6 gm/dl (12.0-16.0); IMMATURE GRAN ABSOLUTE AUTO 0.08 K/mm3 (0.00-0.05); IMMATURE GRAN PERCENT AUTO 0.6 % (0.0-0.4); LYMPHOCYTES ABSOLUTE AUTO 2.4 K/mm3 (1.0-4.8); MEAN CORPUSCULAR HEMOGLOBIN 30.9 pg (28.0-32.0); MEAN CORPUSCULAR HGB CONC 35.4 g/dl (32.0-36.0); MEAN CORPUSCULAR VOLUME 87.2 fl (83.0-99.0); MEAN PLATELET VOLUME 8.3 fl (9.4-12.3); MONOCYTES ABSOLUTE AUTO 0.9 K/mm3 (0.0-0.8); MONOCYTES PERCENT AUTO 6.8 % (0.0-8.0); NEUTROPHILS ABSOLUTE AUTO 9.7 K/mm3 (1.8-7.7); NEUTROPHILS PERCENT AUTO 71.5 % (41.0-71.0); PLATELET COUNT,PLT 330 K/mm3 (150-400); RED BLOOD CELL COUNT 3.76 M/mm3 (4.10-5.30); WHITE BLOOD CELL COUNT,WBC 13.59 K/mm3 (3.9-11.3)
[2023-12-19 21:56] LABS: APPEARANCE,URINE CLOUDY (Clear); BILIRUBIN,URINE NEGATIVE (Negative); COLOR,URINE YELLOW (Yellow); GLUCOSE,URINE NEGATIVE (Negative); KETONES,URINE NEGATIVE (Negative); LEUKOCYTE ESTERASE,URINE 3+ (Negative); NITRITE,URINE POSITIVE (Negative); OCCULT BLOOD,URINE 3+ (Negative); PH,URINE 6.5 (5.0-8.0); PROTEIN,URINE 2+ (Negative); UROBILINOGEN,URINE 0.2 (0.2-1.0)
[2023-12-19 22:07] LABS: BACTERIA,URINE MODERATE /hpf (FEW); MUCUS,URINE FEW /hpf (FEW); RBC,URINE TOO NUMEROUS TO CNT /hpf (0-5); SQUAMOUS EPITHELIAL CELLS,UR 0-5 /hpf (0-5); WBC,URINE 50-75 /hpf (0-5)
[2023-12-19] MEDS: Acetaminophen 325 MG Tab PO ONE (22:17)
[2023-12-19 22:38] LABS: A/G RATIO 1.1 (1-2); ALBUMIN 3.1 g/dl (3.4-5.0); ANION GAP 11.9 (5-15); BILIRUBIN TOTAL 0.3 mg/dL (0.2-1.0); BUN/CREATININE RATIO 11.7 (14-18); CALCIUM 8.7 mg/dL (8.5-10.1); CREATININE 0.6 mg/dL (0.55-1.02); EST CRCL DRUG DOSING (CG) 104.02 mL/min; POTASSIUM,K 3.9 mEq/L (3.5-5.1)
[2023-12-19] MEDS: Levofloxacin/Dextrose 5%-Water 500 MG in Premix Bag 1 BAG IV ONE (22:47)
== END 2023-12-20 00:11 | disposition home or self-care (01) ==
LOC: JD.ED 21:19
DX: O23.01 Infections of kidney in pregnancy, first trimester (principal); Z90.49 Acquired absence of other specified parts of digestive tract; Z91.030 Bee allergy status; Z88.0 Allergy status to penicillin; Z3A.12 12 weeks gestation of pregnancy
CPT/HCPCS: 36415; 80053; 81001; 84702; 85025; 87086; 87088; 87186; 96365; 99284; A9270; J1956; 99283

== ENCOUNTER 2024-02-21 21:55 | Emergency (ER) | payer MEDICAID ==
[2024-02-21] MEDS: Amoxicillin 500 MG Cap PO ONE (23:04)
[2024-02-22] MEDS: Amoxicillin 500 MG Cap PO ONE (00:11)
== END 2024-02-22 00:12 | disposition home or self-care (01) ==
LOC: JD.ED 21:55
DX: O99.612 Diseases of the digestive system complicating pregnancy, second trimester (principal); K04.7 Periapical abscess without sinus; O99.332 Smoking (tobacco) complicating pregnancy, second trimester; F17.210 Nicotine dependence, cigarettes, uncomplicated; Z3A.26 26 weeks gestation of pregnancy; Z86.16 Personal history of COVID-19; Z79.899 Other long term (current) drug therapy; Z91.030 Bee allergy status; Z88.0 Allergy status to penicillin
CPT/HCPCS: 99283; A9270

== ENCOUNTER 2024-06-13 18:09 | Emergency (ER) | payer SELFPAY ==
[2024-06-13 19:33] LABS: BASOPHILS ABSOLUTE AUTO 0.1 K/mm3 (0.0-0.2); BASOPHILS PERCENT AUTO 0.6 % (0.0-1.0); EOSINOPHILS ABSOLUTE AUTO 0.2 K/mm3 (0.0-0.4); EOSINOPHILS PERCENT AUTO 1.8 % (0.0-6.0); HEMATOCRIT 20.3 % (37.0-47.0); IMMATURE GRAN ABSOLUTE AUTO 0.52 K/mm3 (0.00-0.05); LYMPHOCYTES PERCENT AUTO 19.6 % (24.0-44.0); MEAN CORPUSCULAR HEMOGLOBIN 26.9 pg (28.0-32.0); MEAN CORPUSCULAR HGB CONC 31.5 g/dl (32.0-36.0); MEAN CORPUSCULAR VOLUME 85.3 fl (83.0-99.0); MEAN PLATELET VOLUME 8.5 fl (9.4-12.3); MONOCYTES ABSOLUTE AUTO 0.7 K/mm3 (0.0-0.8); MONOCYTES PERCENT AUTO 6.3 % (0.0-8.0); NEUTROPHILS ABSOLUTE AUTO 6.9 K/mm3 (1.8-7.7); NEUTROPHILS PERCENT AUTO 66.7 % (41.0-71.0); NRBC ABSOLUTE 0.13 (0.00-0.02); NRBC PERCENT 1.3 % (0.0-0.2); PLATELET COUNT,PLT 346 K/mm3 (150-400); RED BLOOD CELL COUNT 2.38 M/mm3 (4.10-5.30); WHITE BLOOD CELL COUNT,WBC 10.31 K/mm3 (3.9-11.3)
[2024-06-13 19:34] LABS: HEMOGLOBIN 6.4 gm/dl (12.0-16.0)
[2024-06-13 19:46] LABS: A/G RATIO 0.7 (1-2); ALBUMIN 1.9 g/dl (3.4-5.0); ANION GAP 11.1 (5-15); BILIRUBIN TOTAL 0.2 mg/dL (0.2-1.0); CALCIUM 8.7 mg/dL (8.5-10.1); CREATININE 0.7 mg/dL (0.55-1.02); EST CRCL DRUG DOSING (CG) 87.06 mL/min; POTASSIUM,K 4.1 mEq/L (3.5-5.1); PROTEIN TOTAL,TP 4.8 g/dl (6.4-8.2)
[2024-06-13 20:13] LABS: APPEARANCE,URINE CLEAR (Clear); BILIRUBIN,URINE NEGATIVE (Negative); COLOR,URINE PINK (Yellow); GLUCOSE,URINE NEGATIVE (Negative); KETONES,URINE NEGATIVE (Negative); LEUKOCYTE ESTERASE,URINE 1+ (Negative); NITRITE,URINE NEGATIVE (Negative); OCCULT BLOOD,URINE 3+ (Negative); PH,URINE 6.5 (5.0-8.0); PROTEIN,URINE 1+ (Negative); UROBILINOGEN,URINE 0.2 (0.2-1.0)
[2024-06-13 20:33] LABS: CREATININE,URINE RAND 14.1 mg/dL (30.0-125.0); PROTEIN CREATININE RATIO,URINE 985.8 mg/g (0-149); PROTEIN,URINE RANDOM 13.9 mg/dL (0.0-11.8)
[2024-06-13 20:34] LABS: BACTERIA,URINE FEW /hpf (FEW); RBC,URINE TOO NUMEROUS TO CNT /hpf (0-5); SQUAMOUS EPITHELIAL CELLS,UR 0-5 /hpf (0-5)
[2024-06-13 20:35] LABS: MUCUS,URINE NOT SEEN /hpf (FEW)
[2024-06-13] MEDS ORDERED: Sodium Chloride 0.9% 250 ML ONE (21:11)
[2024-06-13 21:15] LABS: SLIDE REVIEW ABNORMAL SMEAR
[2024-06-14] MEDS: Ibuprofen 800 MG Tab PO ONE (01:27)
[2024-06-14 04:01] LABS: BASOPHILS ABSOLUTE AUTO 0.1 K/mm3 (0.0-0.2); BASOPHILS PERCENT AUTO 1.1 % (0.0-1.0); EOSINOPHILS ABSOLUTE AUTO 0.2 K/mm3 (0.0-0.4); EOSINOPHILS PERCENT AUTO 2.2 % (0.0-6.0); HEMATOCRIT 25.3 % (37.0-47.0); IMMATURE GRAN ABSOLUTE AUTO 0.45 K/mm3 (0.00-0.05); IMMATURE GRAN PERCENT AUTO 4.8 % (0.0-0.4); LYMPHOCYTES ABSOLUTE AUTO 2.2 K/mm3 (1.0-4.8); LYMPHOCYTES PERCENT AUTO 23.6 % (24.0-44.0); MEAN CORPUSCULAR HEMOGLOBIN 28.3 pg (28.0-32.0); MEAN CORPUSCULAR HGB CONC 33.2 g/dl (32.0-36.0); MEAN CORPUSCULAR VOLUME 85.2 fl (83.0-99.0); MEAN PLATELET VOLUME 8.4 fl (9.4-12.3); MONOCYTES ABSOLUTE AUTO 0.7 K/mm3 (0.0-0.8); MONOCYTES PERCENT AUTO 7.6 % (0.0-8.0); NEUTROPHILS ABSOLUTE AUTO 5.7 K/mm3 (1.8-7.7); NEUTROPHILS PERCENT AUTO 60.7 % (41.0-71.0); NRBC ABSOLUTE 0.17 (0.00-0.02); NRBC PERCENT 1.8 % (0.0-0.2); PLATELET COUNT,PLT 313 K/mm3 (150-400); RED BLOOD CELL COUNT 2.97 M/mm3 (4.10-5.30); WHITE BLOOD CELL COUNT,WBC 9.45 K/mm3 (3.9-11.3)
[2024-06-14 04:08] LABS: HEMOGLOBIN 8.4 gm/dl (12.0-16.0)
== END 2024-06-14 05:00 | disposition home or self-care (01) ==
LOC: JD.ED 18:09
DX: D64.9 Anemia, unspecified (principal); Z88.0 Allergy status to penicillin; Z91.030 Bee allergy status; Z79.899 Other long term (current) drug therapy; Z86.16 Personal history of COVID-19; Z90.49 Acquired absence of other specified parts of digestive tract
CPT/HCPCS: 36415; 36430; 80053; 81001; 82570; 83540; 84156; 85025; 85730; 86850; 86900; 86901; 86922; 87086; 99284; A9270; P9016